=== PATIENT | male | born 1965 | race Caucasian/White ===

== ENCOUNTER → 2021-12-11 09:29 | Outpatient (CLI) | payer BC, SELFPAY ==
--- NOTE | 2021-12-11 09:33 | XR_ITS ---
FINAL REPORT CLINICAL HISTORY: RT HIP PAIN FINDINGS: RIGHT HIP Three views demonstrate no acute fracture or dislocation. There are severe degenerative changes. There is a lucency in the superior femoral head, avascular necrosis is not excluded. IMPRESSION: Lucency in the superior femoral head as above. This could be further evaluated with MRI. Reviewed, Interpreted and Dictated by Tomi Lion III, MD Transcribed by Rosemary Ji Authenticated by Tomi Lion III, MD on 12/11/2021 10:09:31 AM [facility]
== END ==
PROVIDERS: PCP Family Medicine; Visit Provider Family Medicine
DX: M25.551 Pain in right hip (principal)
CPT/HCPCS: 73502

== ENCOUNTER → 2021-12-22 09:36 | Outpatient (CLI) | payer BC, SELFPAY ==
--- NOTE | 2021-12-22 09:42 | MR_ITS ---
FINAL REPORT CLINICAL HISTORY: DJD (DEGENERATIVE JOINT DISEASE) OF LUMBAR SPINE. RIGHT HIP PAIN NO PRIOR FINDINGS: Multiplanar MR imaging of the lumbar spine was performed without contrast. On the sagittal T2-weighted images, disc degeneration is seen throughout the lumbar discs. There is mild retrolisthesis of L4 on L5. Endplate changes are seen at several levels, greatest at L4-5. There is no evidence of fracture. There are several hemangiomas. The conus has an unremarkable appearance. No significant canal stenosis is identified. L1-2: There is an annular disc bulge with facet arthropathy. There is no significant canal stenosis or neural foraminal narrowing. L2-3: An annular bulge is present. There is no significant canal stenosis or neural foraminal narrowing. L3-4: There is an annular disc bulge with facet arthropathy. There is no significant canal stenosis. There is mild bilateral neural foraminal narrowing. L4-5: There is an annular disc bulge with facet arthropathy and vertebral osteophytes. There is no significant canal stenosis. There is moderate bilateral neural foraminal narrowing. L5-S1: There is an annular disc bulge with facet arthropathy. There is no significant canal stenosis. There is moderate bilateral neural foraminal narrowing. There is spurring of the sacroiliac joints bilaterally. IMPRESSION: Multilevel degenerative disc disease and spondylosis as described. Reviewed, Interpreted and Dictated by Tomi Lion III, MD Transcribed by Dayana Nielson Authenticated by Tomi Lion III, MD on 12/22/2021 12:09:46 PM [facility]
--- NOTE | 2021-12-22 09:42 | MR_ITS ---
FINAL REPORT CLINICAL HISTORY: RT HIP PAIN, LOW BACK PAIN, NO INJURY PRIOR XRAY 12-11-21 FINDINGS: Multiplanar MR imaging of the right hip was performed without contrast. There is moderate right hip degenerative change with severe superior chondromalacia. There is no evidence of fracture or dislocation. There is no evidence of avascular necrosis. No bony mass is identified. There is labral degeneration without a convincing tear. Small joint effusion is seen. The tendons are intact. The musculature is intact. No soft tissue mass or cyst is identified. 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 Reviewed, Interpreted and Dictated by Tomi Lion III, MD Transcribed by Rosemary Ji Authenticated by Tomi Lion III, MD on 12/22/2021 01:43:11 PM [facility]
== END ==
PROVIDERS: PCP Family Medicine; Visit Provider Family Medicine
DX: M25.551 Pain in right hip (principal); M47.816 Spondylosis without myelopathy or radiculopathy, lumbar region
CPT/HCPCS: 72148; 73721; 76376

== ENCOUNTER → 2022-04-29 10:31 | Outpatient (CLI) | payer BC, SELFPAY ==
[2022-04-29 10:48] LABS: Influenza A, PCR Not Detected (NotDetected); Influenza B, PCR Not Detected (NotDetected)
[2022-04-29 11:09] LABS: Coronavirus 19, PCR Detected (NotDetected)
== END ==
PROVIDERS: PCP Family Medicine; Visit Provider Physician Assistant
DX: U07.1 COVID-19 (principal)
CPT/HCPCS: C9803; U0003; U0005